=== PATIENT | female | born 1955 | race Caucasian/White ===

== ENCOUNTER 2018-04-07 17:38 | Emergency (ER) | payer BC, OTHER ==
[~2018-04-07] VITALS: Ht 175.3 cm; Wt 88.5 kg
[2018-04-07] MEDS ORDERED: NEURONTIN 300300 M1 PO (17:50)
[2018-04-07] MEDS ORDERED: NEOMYC-POLYM-DEX5 ML OPHTHALMIC (18:15)
[2018-04-07 19:21] VITALS: BP 131/70
== END 2018-04-07 19:21 | disposition home or self-care (01) ==
LOC: ER 17:38
DX: B30.9 Viral conjunctivitis, unspecified (principal); H00.021 Hordeolum internum right upper eyelid; J45.909 Unspecified asthma, uncomplicated; F17.200 Nicotine dependence, unspecified, uncomplicated